=== PATIENT | female | born 1950 | race Caucasian/White ===

== ENCOUNTER → 2017-10-13 | Outpatient (CLI) | payer OTHER, MEDICARE ==
[~2017-10-13] MED LIST: ANASTROZOLE1 MG PO; CYMBALTA30 MG PO; GABAPENTIN PO; HYDROCHLOROTHIA25 MG PO; Hydrodiuril,Oretic,E PO; KLONOPIN0.5 M1 PO; Keflex PO; LASIX20 MG PO; Lasix PO; NASONEX17 GM NS; NEURONTIN300 MG PO; NEURONTIN400 MG PO; Neurontin PO; OMEPRAZOLE20 MG PO; PAXIL40 MG PO; Paxil PO; SEROQUEL XR150 MG PO; VENTOLIN HFA18 GM IH; XANAX0.5 MG PO; ZOCOR40 MG PO; Zocor PO
== END | disposition home or self-care (01) ==
LOC: AMB 08:22
PROC: 0JPT3WZ Removal of Totally Implantable Vascular Access Device from Trunk Subcutaneous Tissue and Fascia, Percutaneous Approach (ICD-10-PCS; principal; 2017-10-13)
PROC: 02PYX3Z Removal of Infusion Device from Great Vessel, External Approach (ICD-10-PCS; principal; 2017-10-13)
DX: Z45.2 Encounter for adjustment and management of vascular access device (principal); I87.8 Other specified disorders of veins; Z92.21 Personal history of antineoplastic chemotherapy